=== PATIENT | female | born 1965 | race Caucasian/White ===

== ENCOUNTER 2018-12-30 21:28 | Emergency (ER) | payer BC ==
--- NOTE | 2018-12-30 21:46 | Emergency Department Record ---
History of Present Illness - General Chief complaint: Pain Stated complaint: RT KNEE INJURY Time Seen by Provider: 12/30/18 21:31 Source: Patient Limitations: No limitations - History of Present Illness Initial comments: 53 yo female presents to ED for evaluation of right knee pain for the past several days. Patient denies injury, denies previous surgery, denies fevers, chills, or previous knee problems. Patient reports pain radiating from the knee proximally and distally. Patient reports taking Ibuprofen for her pain symptoms which does improve her symptoms somewhat. Patient denies health problems at her baseline. MD Complaint: Joint pain Onset/Timin -: Days(s) Location: Knee -: Yes Arthralgia Radiation: Proximal, Distal Quality: Aching Consistency: Constant Improves with: Immobilization Worsens with: Weight bearing Associated Symptoms: Denies other symptoms - Related Data Home Medications Medication Instructions Recorded Confirmed Last Taken Estrogens, Conjugated [Premarin] 1.25 mg PO DAILY 12/30/18 12/30/18 Unknown Levothyroxine Sodium 50 mcg PO DAILY 12/30/18 12/30/18 Unknown Montelukast Sodium [Singulair] 10 mg PO QHS 12/30/18 12/30/18 Unknown Paroxetine HCl [Paxil] 10 mg PO DAILY 12/30/18 12/30/18 Unknown Simvastatin 40 mg PO DAILY 12/30/18 12/30/18 Unknown Allergies Allergy/AdvReac Type Severity Reaction Status Date / Time acetaminophen [From Vicodin] AdvReac HIVES Verified 12/30/18 21:45 hydrocodone [From Vicodin] AdvReac HIVES Verified 12/30/18 21:45 morphine AdvReac HIVES Verified 12/30/18 21:45 Review of Systems Constitutional: Denies: Chills, Fever, Malaise, Night sweats Eyes: Denies: Eye discharge, Eye pain ENT: Denies: Congestion, Ear pain, Epistaxis Respiratory: Denies: Cough, Dyspnea Cardiovascular: Denies: Chest pain, Dyspnea on exertion Endocrine: Denies: Fatigue Gastrointestinal: Denies: Abdominal pain, Nausea, Vomiting Genitourinary: Denies: Incontinence, Retention Musculoskeletal: Reports: Arthralgia. Denies: Back pain, Joint swelling Skin: Denies: Bruising, Change in color Neurological: Denies: Abnormal gait, Confusion, Headache, Seizure Psychiatric: Denies: Anxiety Hematological/Lymphatic: Denies: Anemia, Blood Clots Physical Exam - General General Appearance: Alert, Oriented x3, Cooperative, Moderate distress Limitations: No limitations - Head Head exam: Atraumatic, Normocephalic, Normal inspection Head exam detail: negative: Abrasion, Contusion, Sinha's sign, General tenderness, Hematoma, Laceration - Eye Eye exam: Normal appearance. negative: Conjunctival injection, Periorbital swelling, Periorbital tenderness, Scleral icterus - ENT Ear exam: negative: Auricular hematoma, Auricular trauma Nasal Exam: negative: Active bleeding, Discharge, Dried blood, Foreign body Mouth exam: negative: Drooling, Laceration, Muffled voice, Tongue elevation - Neck Neck exam: Normal inspection. negative: Meningismus, Tenderness - Respiratory Respiratory exam: Normal lung sounds bilaterally. negative: Rales, Respiratory distress, Rhonchi, Stridor - Cardiovascular Cardiovascular Exam: Regular rate, Normal rhythm, Normal heart sounds - GI/Abdominal GI/Abdominal exam: Soft. negative: Rebound, Rigid, Tenderness - Rectal Rectal exam: Deferred - exam: Deferred - Extremities Extremities exam: Tenderness, Other (Mild warmth to palpation right knee, no effusion present, ligaments are stable on examination, no erythema or evidence for septic joint on examination. ). negative: Calf tenderness, Pedal edema - Back Back exam: Denies: CVA tenderness (R), CVA tenderness (L) - Neurological Neurological exam: Alert, Oriented X3 - Psychiatric Psychiatric exam: Normal affect, Normal mood - Skin Skin exam: Normal color. negative: Abrasion Type of lesion: negative: abrasion Course Vital Signs 12/30/18 21:37 Temperature 97.9 F Respiratory 18 Rate Pulse Ox 98 - Reevaluation(s) Reevaluation #1: 12/30/18 22:18 Right Knee: No acute process Patient was updated on all results, will place in knee immobilizer and crutches as directed. Will place consult with Dr. Polk later this week as well. Patient appears stable for discharge at this time Disposition Disposition: Discharge Clinical Impression: Knee pain, right Qualifiers: Chronicity: acute Qualified Code(s): M25.561 - Pain in right knee Disposition: Home, Self-Care Condition: (2) Stable Instructions: Knee Pain (ED) Additional Instructions: Return to ED if your symptoms worsen or if you have any concerns. Knee immobilizer as directed. Follow-up with Dr. Polk in 3-5 days in the [facility]. Referrals: Tomasz Polk [DOCTOR OF OSTEOPATH] - [facility] [Provider Group] Forms: Patient Portal Access Time of Disposition: 22:19 Quality - Quality Measures Quality Measures: N/A - Blood Pressure Screening Does Patient Have Any of the Following: No Blood Pressure Classification: Hypertensive Reading Systolic Measurement: 150 Diastolic Measurement: 93 Screening for High Blood Pressure: < First Hypertensive BP, F/U Documented > [G8950] First Hypertensive Follow-up Interventions: Referral to alternative/primary care provider.
--- NOTE | 2019-01-01 19:38 | RADIOLOGY REPORT ---
EXAMINATION: Right knee 4 views. CLINICAL HISTORY: Chronic knee pain worsening over the past 3 days. No known injury. COMPARISON: None. FINDINGS: Mild joint effusion. No fracture or malalignment. Joint spaces are overall preserved without acute osseous abnormality. Soft tissues are unremarkable. IMPRESSION: No acute osseous abnormality. MTDD
== END 2018-12-30 22:31 | disposition home or self-care (01) ==
LOC: ER 21:28
DX: M25.561 Pain in right knee (principal)
CPT/HCPCS: 99283

== ENCOUNTER 2019-02-13 07:18 | Day surgery (SDC) | payer BC ==
[~2019-02-13 07:18] MED LIST: ACETAMINOPHEN 1,000 MG/100 ML BTL IVPB ONE; MECLIZINE 25 MG TABLET PO ONE
[2019-02-13] MEDS ORDERED: DEXAMETHASONE 4 MG/ML 1ML VIAL IVP ONE (07:19)
[2019-02-13] MEDS ORDERED: PROPOFOL 10 MG/ML VIAL IV ONE (07:19)
[2019-02-13] MEDS ORDERED: LIDOCAINE 2% MDV (20MG/ML) 20ML VIAL IV ONE (07:19)
[2019-02-13] MEDS ORDERED: DIPHENHYDRAMINE HCL 50 MG/ML VIAL IVP ONE (07:19)
[2019-02-13] MEDS ORDERED: KETOROLAC 30 MG/ML VIAL IVP ONE (07:19)
[2019-02-13] MEDS ORDERED: MIDAZOLAM HCL 2MG/2ML VIAL IV ONE (07:19)
[2019-02-13] MEDS ORDERED: ONDANSETRON HCL IV 4 MG/2 ML VIAL IVP ONE (07:19)
[2019-02-13] MEDS ORDERED: FENTANYL PF 100MCG/2ML VIAL IV ONE (07:19)
[2019-02-13] MEDS ORDERED: FAMOTIDINE 20MG TABLET PO ONE (07:36)
[2019-02-13] MEDS ORDERED: METOCLOPRAMIDE 10 MG TABLET PO ONE (07:36)
[2019-02-13] MEDS ORDERED: SCOPOLAMINE 1 PATCH TDSY TD ONE (07:36)
[2019-02-13] MEDS ORDERED: RINGERS SOLUTION,LACTATED 1,000 ML IV ONE (07:55)
[2019-02-13] MEDS ORDERED: BUPIVACAINE 0.25% W/EPI MPF 30ML VIAL SQ ONE (09:19)
[2019-02-13] MEDS ORDERED: ACETAMINOPHEN W/ CODEINE 300MG/30MG TABLET PO PRN (10:27)
--- NOTE | 2019-02-14 13:32 | Operative Note ---
DATE OF SURGERY: 02/13/2019 PREOPERATIVE DIAGNOSIS: Torn medial meniscus of the right knee. POSTOPERATIVE DIAGNOSES: 1. Torn medial meniscus of the right knee. 2. Chondromalacia of the patella right knee. 3. Multiple loose joint bodies right knee. OPERATION: 1. Arthroscopic partial medial meniscectomy right knee. 2. Arthroscopic removal of loose joint bodies right knee. 3. Arthroscopic chondroplasty of the patella right knee. SURGEON: Tomasz Polk D.O. REFERRING PHYSICIAN: Teto Sherman D.O. ANESTHESIA: General. ANESTHESIA PROVIDER: PROCEDURE: This 52-year-old female was taken to the operating room and placed in the supine position on the operating room table where general anesthesia was induced. The right lower extremity was elevated, it was exsanguinated and the tourniquet inflated to 300 mmHg. Arthroscopic knee-nichols applied. The right knee prepped with Hibiclens and draped in the usual sterile fashion. An inferolateral portal was established with a 4 mm arthroscope and initial evaluation of the joint demonstrated there are multiple loose joint bodies present within the joint. These were too numerous to count and floating in the suprapatellar pouch, medial and lateral gutters and medial lateral compartments. The patella demonstrated an area of advanced grade 3 change on the medial facet of the patella, which was the source of the cartilaginous loose joint bodies. A chondroplasty was performed to stabilize the articular cartilage there. The suprapatellar pouch and medial and lateral gutters were suctioned to remove the loose joint bodies. The medial compartment was entered and a small tear of the posterior horn of the medial meniscus was present. There was some small undersurface disruption as well. Utilizing the basket forceps, we resected unstable fragments of the meniscus near the posterior attachment, but the root was not disturbed. The meniscus was smoothed, trimmed, and balanced utilizing the basket forceps and rotating shaver, it was reprobed and confirmed to be stable. The articular cartilage of the medial compartment appeared essentially normal with very, very minimal scuffing along the lateral edge of the medial femoral condyle. The intra-condylar notch demonstrated normal findings. The lateral compartment was entered and again loose joint bodies were suctioned from the joint, the lateral meniscus appeared normal, as did the articular cartilage of the lateral compartment. The joint was copiously irrigated and suctioned. The instruments were removed. The portals infiltrated with 0.25% Marcaine with epinephrine. Sterile dressings applied. The tourniquet and knee-nichols released and the patient taken to the recovery room in satisfactory condition. GROSS PATHOLOGY: This patient had a small tear of the posterior horn of the medial meniscus. It did not extend into the root of the meniscus, but small disruption posteriorly and inferiorly under the meniscus of the posterior horn. This was resected to stable meniscus. There were multiple cartilaginous loose joint bodies present within the joint, too numerous to count, and these appeared to be emanating from a grade 3 defect of the medial facet of the patella. This lesion being approximately 1 to 1.5 cm in greatest dimension. MTDD
== END 2019-02-13 10:40 | disposition home or self-care (01) ==
LOC: SUR 07:18
PROVIDERS: ATTEND Orthopaedic Surgery
DX: S83.241A Other tear of medial meniscus, current injury, right knee, initial encounter (principal); M22.41 Chondromalacia patellae, right knee; M23.41 Loose body in knee, right knee; E78.00 Pure hypercholesterolemia, unspecified; E03.9 Hypothyroidism, unspecified
CPT/HCPCS: J1200; J1885; J2405; J7120